=== PATIENT | female | born 1955 | race Caucasian/White ===

== ENCOUNTER → 2018-01-09 | Day surgery (SDC) | payer OTHER ==
--- NOTE | 2018-01-05 11:28 | Diagnostic Imaging Report ---
PROCEDURE: X-RAY CHEST, TWO VIEWS COMPARISON: 06/27/2060. INDICATIONS: PRE-OPERATIVE CHEST X-RAY FOR ANKLE SURGERY FINDINGS: LUNGS: No consolidations or edema.Symmetric nodular opacities project over the lower lungs compatible with nipple shadows. PLEURA: No effusions or pneumothorax. HEART \T\ MEDIASTINUM: The heart is within normal size-limits. BONES \T\ SOFT TISSUES: No acute findings. CONCLUSION: No acute thoracic abnormality. Dictated by: Miguel A Crump M.D. on 01/05/2018 at 11:28 Electronically approved by: Miguel A Crump M.D. on 01/05/2018 at 11:28
[~2018-01-09] MED LIST: ACETAMINOPHEN 1000 MG/100 ML IV ONE; ASPIRIN81 MG PO; ATENOLOL50 MG PO; ATORVASTATIN CA20 MG PO; BACITRACIN ZINC 15 GM OINT ONE; BUPIVACAINE HCL 0.5% INJ 30 ML VIAL INJ ONE; CEFAZOLIN SOD 1 GM VIAL ONE; DEXAMETHASONE SOD PHOS INJ 4 MG/ML VIAL ONE; EPHEDRINE SULFATE INJ 50 MG/10 ML SYR ONE; FENTANYL CITRATE/PF 100MCG/2 ML INJ ONE; GLYCOPYRROLATE INJ 1MG/ 5 ML SYR ONE; LATANOPROST2.5 ML OP; LIDOCAINE HCL 2% LOCAL 20 ML VIAL ONE; LIDOCAINE HCL 2% LOCAL INJ 5 ML SDV VIAL INJ ONE; LISINOPRIL PO; LISINOPRIL-HCT1 EAC2 PO; MIDAZOLAM HCL 2 MG/2 ML VIAL ONE; MULTIVITAMINS1 EAC7 PO; NEOSTIGMINE 5 MG/5ML SYR ONE; NEXIUM PO; NEXIUM40 MG PO; NORCO 5-325 TA1 EACH PO; ONDANSETRON HCL INJ 2 MG/ML VIAL ONE; PROPOFOL IV EMULSION 10 MG/ML 20 ML VIAL ONE; RANITIDINE HCL150 MG PO; ROCURONIUM BROMIDE 10 MG/ML 5ML VIAL ONE; ROPIVACAINE 0.5% 5 MG/ML 30 ML SDV ONE; SEVOFLURANE INHAL SOLN 250 ML PEN BTL ONE; TRAZODONE HCL50 MG PO; TRAZODONE PO; TRILIPIX135 MG PO; VITAMIN PO
--- OUTSIDE RECORDS SUMMARY | 2018-01-09 07:43 | XMS REPORT ---
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 Allergies, Adverse Reactions, Alerts This patient has no known allergies or adverse reactions. Medications This patient has no known medications. Results Test Description Test Time Test Comments Text Results Atomic Results Result Comments CHEST 2 VIEWS [place] [address] Patient Name: CURLY SEXTON MR #: [id number] : 1955 Age/Sex: 62/F Req #: [id number] [facility] Physician: Ordered by: YEHUDA HAMMOND DP Report #: [id number] Location: OR Room/Bed: Procedure: [id number] DX/CHEST 2 VIEWS Exam Date: 01/05/18 Exam Time: 1115 REPORT STATUS: Signed PROCEDURE: X-RAY CHEST , TWO VIEWS COMPARISON: 06/27/2060. INDICATIONS: PRE-OPERATIVE CHEST X-RAY FOR ANKLE SURGERY FINDINGS: LUNGS: No consolidations or edema. Symmetric nodular opacities project over the lower lungs compatible with nipple shadows. PLEURA: No effusions or pneumothorax. HEART T MEDIASTINUM: The heart is within normal size-limits. BONES T SOFT TISSUES: No acute findings. CONCLUSION: No acute thoracic abnormality. Dictated by: Jen Uriarte M.D. on 01/05/2018 at 11:28 Electronically approved by: Jen Uriarte M.D. on 01/05/2018 at 11:28 Dictated By: JEN URIARTE MD [id number] Transcribed By: URIEL on 01/05/188 COPY TO: YEHUDA HAMMOND DPM
--- NOTE | 2018-01-09 14:22 | Operative Report ---
DATE OF PROCEDURE: January 09, 2018 PREOPERATIVE DIAGNOSES 1. Right foot secondary tear of Achilles tendon. 2. Retrocalcaneal exostosis. 3. Equinus. POSTOPERATIVE DIAGNOSES 1. Right foot secondary tear of Achilles tendon. 2. Retrocalcaneal exostosis. 3. Equinus. PROCEDURES 1. Secondary repair of Achilles tendon. 2. Removal of retrocalcaneal exostosis. 3. Gastrocnemius recession. 4. Application of posterior splint. 5. Use of human allograft. PATHOLOGY: None. ANESTHESIA: General anesthetic with regional block given by anesthesia preop. HEMOSTASIS: Pneumatic thigh tourniquet. ESTIMATED BLOOD LOSS: Less than 10 mL. MATERIALS: An anchor from [employer] and 2-0 FiberWire. INJECTABLES: None. PROCEDURE IN DETAIL: Under mild sedation, the patient was brought to the operating room and placed on the operating table in the supine position. Following IV sedation, anesthesia was obtained with general anesthetic. At this point, the foot was scrubbed, prepped and draped in the usual aseptic manner. The foot was positioned in the prone position. The pneumatic ankle tourniquet was inflated, and the leg was lowered to the table. Attention was then directed to the posterior aspect of the Achilles tendon where the aponeurosis meets the tendon. An incision was made approximately 2 cm down to the level of the tendon, taking care to retract or cauterize the neurovascular structures as necessary. Once the aponeurosis was visualized, a Mikaela type of lengthening was then performed. The Achilles contracture was released through and through. The area was then flushed with copious amounts of normal sterile saline solution. Attention was then directed to the insertion of the Achilles where a linear incision was made overlying the insertion. The incision was deepened via sharp and blunt dissection until the level of the tendon. The tendon was then retracted off of the insertion. At this point, there was noted to be a large, loose fragment in the tendon. All of this was removed with sharp excisional dissection. The exostosis at the insertion of the Achilles tendon was removed. The area was then made smooth with a combination of osteotome and a power rasp. The area was then flushed with copious amount of normal sterile saline solution. At this point, a [place] anchor was then used in order to reattach the braided tendon down to clean, viable tissue down into the insertion of the calcaneus. There was noted to be adequate compression clinically. At this point, the attachment of the Achilles into the calcaneus was reinforced with the use of FiberWire. The use of human amniotic tissue was then used in order to prevent adhesions to promote healing. A 2 x 2 patch was used. Half of it was used in the insertion at the gastroc and half into the Achilles tendon. At this point, the incision was then closed, closing the deepest layer with 3-0 Vicryl, 4-0 Vicryl, and 4-0 nylon. The incisions were then dressed with sterile compressive dressing consisting of Adaptic ointment, 4 x 4's, Kerlix, and Webril. A posterior splint was applied and was secured using an Dieter bandage. The tourniquet was deflated. There was noted to be hyperemic response to all the digits. The patient tolerated the procedure and anesthesia well without complications. She was transported to the recovery room with vital signs stable and vascular status intact to both feet. The patient will be discharged home when she meets criteria. She was given instructions to be strictly nonweightbearing, to ice and elevate the foot while at rest, to follow up with me in the office and to call the office if any questions, concerns or any problems arise. Job#: [id number]
== END | disposition home or self-care (01) ==
LOC: OR 07:41
PROVIDERS: ATTEND Podiatrist Foot & Ankle Surgery
DX: S86.011A Strain of right Achilles tendon, initial encounter (principal); M77.31 Calcaneal spur, right foot; M21.6X1 Other acquired deformities of right foot; I10 Essential (primary) hypertension; E78.5 Hyperlipidemia, unspecified; K21.9 Gastro-esophageal reflux disease without esophagitis; E11.9 Type 2 diabetes mellitus without complications; F17.210 Nicotine dependence, cigarettes, uncomplicated; X58.XXXA Exposure to other specified factors, initial encounter; Z01.810 Encounter for preprocedural cardiovascular examination; Z01.818 Encounter for other preprocedural examination
CPT/HCPCS: 27654; 27687; 28118; 71046; 93005; J0690; J1100; J2001 ×2; J2250; J2405; J2795